=== PATIENT | male | born 1950 | race Caucasian/White ===

== ENCOUNTER 2017-02-19 06:30 | Day surgery (SDC) | payer MEDICARE, OTHER ==
[~2017-02-19] VITALS: Ht 165.1 cm; Wt 72.6 kg
[2017-02-19] MEDS ORDERED: PRILOSEC OTC20 MG PO (06:55)
--- NOTE | 2017-02-19 08:16 | NUR ---
02/19/17 0816 Melodie Frias 0847-PATIENT ARRIVED TO PACU ON 3L NC O2 SAT 99% PATIENT REACTIVE OPENS EYES. ABDOMEN SOFT.
--- NOTE | 2017-02-21 10:03 | OR ---
[facility] [address], [place] [address] Signed DATE OF OPERATION: 02/19/2017 SURGEON: Myra Navarrete MD PREOPERATIVE DIAGNOSIS: Colon screening. POSTOPERATIVE DIAGNOSIS: Normal colon to cecum. PROCEDURE: Total colonoscopy to cecum. ANESTHESIA: Intravenous sedation with fentanyl 100 mcg and Versed 5 mg. INDICATION: A 66-year-old white man is patient of Dr. eLwis. He has never undergone colon screening. He is symptom-free and has no family history of colon cancer. He understands the risks of bleeding, infection, and perforation related to colonoscopy and wished to proceed. FINDINGS: The prep was excellent. Complete colonoscopy was undertaken to the cecum without question. The appendiceal orifice and ileocecal valve appeared normal. The remaining colon was entirely normal as well. DESCRIPTION OF PROCEDURE: The patient was brought to the endoscopy suite and placed in lateral decubitus position, given intravenous sedation to the point of slurred speech and nystagmus. Digital rectal examination was normal. An Olympus video colonoscope was passed in the rectum and manipulated throughout the colon ultimately intubating the cecum itself. The ileocecal valve and appendiceal orifice appeared normal. Scope was carefully withdrawn from that point. Examination throughout with all due care showed no sign of abnormalities, specifically no polyps, diverticular formation, colitis, or cancer. Retroflex view was normal as well. There were some minimal hemorrhoidal changes. The scope was straightened, withdrawn, and removed and the patient was taken to recovery room in good condition. Electronically Signed By: MYRA NAVARRETE MD 02/21/17 1003 PATIENT NAME: ALEXX YU OPERATIVE REPORT DATE OF : 46 PHYSICIAN: MYRA NAVARRETE MD REPORT #: [id number] REPORT IS CONFIDENTIAL AND NOT TO BE RELEASED WITHOUT AUTHORIZATION [address] [place], [place] [address] Signed CONCLUDING DIAGNOSIS: Normal colon. PLAN: Recommend repeat colonoscopy in 10 years. He will return to the ongoing care of Dr. Lewis. MD GUERITA Anderson/RAYL /[id number] cc: Otoniel Lewis MD Electronically Signed By: MYRA NAVARRETE MD 02/21/17 1003 PATIENT NAME: ALEXX YU OPERATIVE REPORT DATE OF : 46 PHYSICIAN: MYRA NAVARRETE MD REPORT #: [id number] REPORT IS CONFIDENTIAL AND NOT TO BE RELEASED WITHOUT AUTHORIZATION
[2017-05-24] MEDS ORDERED: VITAMIN B122500 MCG PO (07:33)
[2017-05-24] MEDS ORDERED: VITAMIN D3 COM1 EACH PO (07:33)
[2017-05-24] MEDS ORDERED: IRON325 M1 PO (07:34)
[2017-05-24] MEDS ORDERED: ASPIR 8181 MG PO (07:34)
== END 2017-02-19 09:45 | disposition home or self-care (01) ==
LOC: DS 06:30 → OPS 06:30 → DS 06:45 → OPS 09:45
PROVIDERS: Surgery
PROC: 0DJD8ZZ Inspection of Lower Intestinal Tract, Via Natural or Artificial Opening Endoscopic (ICD-10-PCS; principal; 2017-02-19 06:45)
DX: Z12.11 Encounter for screening for malignant neoplasm of colon (principal); K64.9 Unspecified hemorrhoids; Z90.49 Acquired absence of other specified parts of digestive tract; Z98.890 Other specified postprocedural states; Z90.89 Acquired absence of other organs
CPT/HCPCS: 99153; G0500; J2250; J3010; J7120

== ENCOUNTER 2017-04-23 18:58 | Emergency (ER) | payer MEDICARE, OTHER ==
[~2017-04-23] VITALS: Ht 167.6 cm; Wt 73.5 kg
--- OUTSIDE RECORDS SUMMARY | ~2017-04-23 | XMS | Clinical Summary ---
Demographics + + + | Address | [address] | | | [place] [address] | + + + | Home Phone | | + + + | Preferred Language | Unknown | + + + | Marital Status | | + + + | Uatsdin Affiliation | NRP | + + + | Race | White | + + + | Ethnic Group | Not or | + + + Author + + + | Author | NON REVENUE LOCATIONS | + + + | Organization | NON REVENUE LOCATIONS | + + + | Address | Unknown | + + + | Phone | Unavailable | + + + Support + + + + + | Name | Relationship | Address | Phone | + + + + + | Rosalie Yu | ECON | [address] | | | | | [place] | | | | | [address] | | + + + + + Care Team Providers + +------+ + | Care Scale Agent Name | Role | Phone | + +------+ + | Otoniel Lewis MD | PP | | + +------+ + Source Comments [facility] and [facility] Allergies No Known Allergies Current Medications + + + +---------+------+------+-------+ | Prescription | Sig. | Disp. | Refills | Star | End | Statu | | | | | | t | Date | s | | | | | | Date | | | + + + +---------+------+------+-------+ | | Apply 1 Packet to | 144 | 2 | 10/2 | | Activ | | bacitracin-polymyxin | affected area as | Packet | | 3/20 | | e | | B 500-10,000 unit/g | needed (Nurse | | | 12 | | | | Topical Packet | Initiated Order - | | | | | | | | affected skin areas | | | | | | | | with superficial | | | | | | | | lacerations/abrasion | | | | | | | | s). | | | | | | + + + +---------+------+------+-------+ | ascorbic acid SR | Take 2,000 mg by | | | | | Activ | | (VITAMIN C) 1,000 mg | mouth once daily. | | | | | e | | Oral tablet | | | | | | | + + + +---------+------+------+-------+ | busPIRone 5 mg | Take 5 mg by mouth | | | | | Activ | | Oral tablet | two times daily. | | | | | e | + + + +---------+------+------+-------+ | omeprazole 40 mg | Take 1 Cap by mouth | 14 Cap | 2 | 12/2 | | Activ | | Oral capsule,delayed | once daily. | | | 03/03 | | e | | release(DR/EC) | | | | 12 | | | + + + +---------+------+------+-------+ Active Problems + + + | Problem | Noted Date | + + + | Dizziness | 05/29/2016 | + + + | Accidental fall from ladder | 12/04/2011 | + + + + + | Overview: Patient was admitted as a level 3 Trauma entry | | after an accidental fall from ladder on 12/02/11 | + + + + + | Right orbital fracture (HCC) | 12/04/2011 | + + + + + | Overview: right frontal supraorbital fracture diagnosed on CT | + + + + + | Traumatic subarachnoid hemorrhage (HCC) | 12/04/2011 | + + + + + | Overview: Pt has been diagnosed with left subarachnoid | | hemorrhage, consulted by Neurosurgery service, the bleeding was | | stable on consecutive imaging studies and no surgical | | intervention was required | + + + + + | Closed fracture of right olecranon process | 12/04/2011 | + + + + + | Overview: Orthopedic team has been consulted for right | | intra-articular olecranon fracture and pt underwent open | | reduction with internal fixation on 12/04/2011 | + + + + + | Laceration of head | 12/04/2011 | + + + + + | Overview: Consulted by plastic surgery team, who performed | | irrigation, debridement and closure at the bedside on 12/02/11 Pt | | will need to follow up with [facility] in 1 | | week for suture removal | + + + + + | Acute pain due to trauma | 12/04/2011 | + + + + + | Overview: Well controlled by oral pain management | + + + + + | Intracranial hemorrhage (HCC) | 12/02/2011 | + + + Family History + + +------+ + | Medical History | Relation | Name | Comments | + + +------+ + | Alcohol/Drug | Father | | | + + +------+ + | Alcohol/Drug | Mother | | | + + +------+ + + +------+--------+ + | Relation | Name | Status | Comments | + +------+--------+ + | Father | | | | + +------+--------+ + | Mother | | | | + +------+--------+ + Social History + +-------+ +--------+------+ | Tobacco Use | Types | Packs/Day | Years | Date | | | | | Used | | + +-------+ +--------+------+ | Never Smoker | | | | | + +-------+ +--------+------+ + +---+---+---+ | Smokeless Tobacco: | | | | | Never Used | | | | + +---+---+---+ + + +---------+ + | Alcohol Use | Drinks/We | oz/Week | Comments | | | ek | | | + + +---------+ + | No | | | | + + +---------+ + + + + | Sex Assigned at | Date Recorded | | | | + + + | Not on file | | + + + Last Filed Vital Signs + + + + | Vital Sign | Reading | Time Taken | + + + + | Blood Pressure | 104/70 | 12/25/2011 1:29 PM PST | + + + + | Pulse | 78 | 12/25/2011 1:29 PM PST | + + + + | Temperature | 36.7 C (98 F) | 01/30/2012 11:25 AM PST | + + + + | Respiratory Rate | 12 | 12/25/2011 1:29 PM PST | + + + + | Oxygen Saturation | 98% | 12/05/2011 7:43 AM PDT | + + + + | Inhaled Oxygen | - | - | | Concentration | | | + + + + | Weight | 67.1 kg (148 lb) | 01/30/2012 11:25 AM PST | + + + + | Height | 165.1 cm (5' 5") | 01/30/2012 11:25 AM PST | + + + + | Body Mass Index | 24.63 | 01/30/2012 11:25 AM PST | + + + + Plan of Treatment + + + + + | Health Maintenance | Due Date | Last Done | Comments | + + + + + | INFLUENZA VACCINE | | | | | (FLU SHOT) | 7 | | | + + + + + Implants + +------+--------+ +--------+--------+--------+ | Implanted | Type | Area | Manufacture | Device | Expira | Model | | | | | r | | tion | / | | | | | | Identi | Date | Serial | | | | | | fier | | / Lot | + +------+--------+ +--------+--------+--------+ | Olecranon Plate Standard | | Right: | ACUMED | | | 70-030 | | 5-Hole Rt - | | Upper | | | | 5 / / | | [id number]: Qty: 1 on | | Arm | | | | | | 12/04/2011 | | | | | | | + +------+--------+ +--------+--------+--------+ | 2.7mm X 18mm Locking Hexalobe | | Right: | ACUMED | | | 30-032 | | Screw - [id number]: | | Upper | | | | 9 / / | | Qty: 2 on 12/04/2011 | | Arm | | | | | + +------+--------+ +--------+--------+--------+ | 3.5mm X 20mm Non-Locking | | Right: | ACUMED | | | 30-026 | | Hexalobe Screw - | | Upper | | | | 1 / / | | [id number]: Qty: 1 on | | Arm | | | | | | 12/04/2011 | | | | | | | + +------+--------+ +--------+--------+--------+ | 3.5mm X 22mm Non-Locking | | Right: | ACUMED | | | 30-026 | | Hexalobe Screw - | | Upper | | | | 2 / / | | [id number]: Qty: 1 on | | Arm | | | | | | 12/04/2011 | | | | | | | + +------+--------+ +--------+--------+--------+ | 3.5mm X 24mm Non-Locking | | Right: | ACUMED | | | 30-026 | | Hexalobe Screw - | | Upper | | | | 3 / / | | [id number]: Qty: 1 on | | Arm | | | | | | 12/04/2011 | | | | | | | + +------+--------+ +--------+--------+--------+ | 3.5mm X 50mm Non-Locking | | Right: | ACUMED | | | 30-027 | | Hexalobe Screw - | | Upper | | | | 3 / / | | [id number]: Qty: 1 on | | Arm | | | | | | 12/04/2011 | | | | | | | + +------+--------+ +--------+--------+--------+ + +------+--------+ +--------+--------+--------+ | Explanted | Type | Area | Manufacture | Device | Expira | Model | | | | | r | | tion | / | | | | | | Identi | Date | Serial | | | | | | fier | | / Lot | + +------+--------+ +--------+--------+--------+ | 3.5mm X 45mm Non-Locking | | Right: | ACUMED | | | 30-027 | | Hexalobe Screw - | | Upper | | | | 2 / / | | [id number]: Qty: 1 | | Arm | | | | | + +------+--------+ +--------+--------+--------+ Results Not on filefrom Last 3 Months
--- OUTSIDE RECORDS SUMMARY | ~2017-04-23 | XMS | Clinical Summary ---
Demographics + + + | Address | [address] | | | [place] [address] | + + + | Home Phone | | + + + | Preferred Language | Unknown | + + + | Marital Status | | + + + | Episcopalian Affiliation | NRP | + + + [...] [place] | | | | | [phone] | | + + + + + Care Team Providers + +------+ + | Care Enamel Burner Name | Role | Phone | + +------+ + | Otoniel Lewis MD | PP | | + +------+ + Source Comments SHARLENE is fully live on both [facility] and [facility] Allergies No Known Allergies Current Medications + [...] | | 5 / / | | [id number]: Qty: 1 on | | Arm | | | | | | 12/04/2011 | | | | | | | + +------+--------+ +--------+--------+--------+ | 2.7mm X 18mm Locking Hexalobe | | Right: | ACUMED | | | 30-032 | | Screw - [id number]: | | Upper | | | | 9 / / | | Qty: 2 on 12/04/2011 | | Arm | | | | | + +------+--------+ +--------+--------+--------+ | 3.5mm X 20mm Non-Locking | | Right: | ACUMED | | | 30-026 | | Hexalobe Screw - | | Upper | | | | 1 / / | | [id number]: Qty: 1 on | | Arm | | | | | | 12/04/2011 | | | | | | | + +------+--------+ +--------+--------+--------+ | 3.5mm X 22mm Non-Locking | | Right: | ACUMED | | | 30-026 | | Hexalobe Screw - | | Upper | | | | 2 / / | | [id number]: Qty: 1 on | | Arm | | | | | | 12/04/2011 | | | | | | | + +------+--------+ +--------+--------+--------+ | 3.5mm X 24mm Non-Locking | | Right: | ACUMED | | | 30-026 | | Hexalobe Screw - | | Upper | | | | 3 / / | | [id number]: Qty: 1 on | | Arm | | | | | | 12/04/2011 | | | | | | | + +------+--------+ +--------+--------+--------+ | 3.5mm X 50mm Non-Locking | | Right: | ACUMED | | | 30-027 | | Hexalobe Screw - | | Upper | | | | 3 / / | | [id number]: Qty: 1 on | | Arm | [...] | | 2 / / | | [id number]: Qty: 1 | | Arm | | | | | + +------+--------+ +--------+--------+--------+ Results Not on filefrom Last 3 Months
[~2017-04-23 18:58] MED LIST: PRILOSEC OTC20 MG PO
[2017-05-24] MEDS ORDERED: VITAMIN B122500 MCG PO (07:33)
[2017-05-24] MEDS ORDERED: VITAMIN D3 COM1 EACH PO (07:33)
[2017-05-24] MEDS ORDERED: ASPIR 8181 MG PO (07:34)
[2017-05-24] MEDS ORDERED: IRON325 M1 PO (07:34)
== END 2017-04-23 20:58 | disposition home or self-care (01) ==
LOC: ED 18:58
DX: J06.9 Acute upper respiratory infection, unspecified (principal); D64.9 Anemia, unspecified; Z79.899 Other long term (current) drug therapy
CPT/HCPCS: 99282